=== PATIENT | female | born 1965 | race Caucasian/White ===

== ENCOUNTER 2021-02-19 20:32 | Emergency (ER) | payer BC, OTHER ==
[2021-02-19 21:08] VITALS: BMI 23.0
[2021-02-19 23:23] VITALS: BP 124/76; PULSE 60; TEMP 98.3
== END 2021-02-20 00:17 | disposition home or self-care (01) ==
LOC: FER 20:32
DX: L50.0 Allergic urticaria (principal)
CPT/HCPCS: 99283-25

== ENCOUNTER 2022-07-15 22:22 | Emergency (ER) | payer BC, OTHER ==
[2022-07-15] MEDS ORDERED: DOXYCYCLINE HYCLATE 100 MG CAPSULE PO ONE ×2 (22:56→23:06)
[2022-07-15 23:04] VITALS: BP 141/83; PULSE 68; RESP 18; TEMP 98.8; BMI 24.6
== END 2022-07-15 23:05 | disposition home or self-care (01) ==
LOC: FER 22:22
DX: S30.861A Insect bite (nonvenomous) of abdominal wall, initial encounter (principal); W57.XXXA Bitten or stung by nonvenomous insect and other nonvenomous arthropods, initial encounter
CPT/HCPCS: 99283-25